=== PATIENT | female | born 1975 | race Caucasian/White ===

== ENCOUNTER 2018-09-06 17:41 | Emergency (ER) | payer MEDICAID ==
[~2018-09-06] VITALS: Ht 157.5 cm; Wt 78.0 kg
[2018-09-06 17:48] VITALS: Ht 157.5 cm; Wt 78.0 kg
[2018-09-06 19:56] VITALS: BP 115/64
== END 2018-09-06 19:56 | disposition home or self-care (01) ==
LOC: ED 17:41
DX: G44.209 Tension-type headache, unspecified, not intractable (principal); F17.210 Nicotine dependence, cigarettes, uncomplicated
CPT/HCPCS: J1885